=== PATIENT | female | born 1995 | race Caucasian/White ===

== ENCOUNTER 2017-01-14 14:32 | Emergency (ER) | payer MEDICAID ==
[~2017-01-14] VITALS: Ht 165.1 cm; Wt 55.0 kg
[~2017-01-14 14:32] MED LIST: GABA300C10 PO; IBUP-1222 PO; OXYC-302 PO
[2017-01-14] MEDS ORDERED: SODIUM CHLORIDE 0.9% 1,000 ML IV ONE (14:35)
[2017-01-14] MEDS ORDERED: MORPHINE SULFATE 4 MG/ML, 1ML ONE (14:45)
[2017-01-14] MEDS ORDERED: DIPHENHYDRAMINE 50 MG/ML, 1ML ONE (14:45)
[2017-01-14] MEDS ORDERED: METOCLOPRAMIDE 5 MG/ML, 2ML ONE (14:45)
[2017-01-14 14:55] LABS: HEMOGLOBIN 13.5 g/dL (11.7-16.4)
[2017-01-14] MEDS ORDERED: DIPHENHYDRAMINE 50 MG/ML, 1ML IVPush ONE (15:00)
[2017-01-14] MEDS ORDERED: METOCLOPRAMIDE 5 MG/ML, 2ML IVPush ONE (15:00)
[2017-01-14] MEDS ORDERED: MORPHINE SULFATE 4 MG/ML, 1ML IVPush PRN (15:00)
[2017-01-14] MEDS ORDERED: SODIUM CHLORIDE 0.9% 1,000ML IVBOLUS ONE (15:00)
[2017-01-14 15:06] LABS: ASPARTATE AMINO TRANSFERASE 14 U/L (15-37); BLOOD UREA NITROGEN 7 mg/dL (7-18)
[2017-01-14] MEDS ORDERED: DICYCLOMINE 20 MG TABLET PO ONE (16:30)
[2017-01-14 16:56] VITALS: BP 104/72
== END 2017-01-14 17:06 | disposition home or self-care (01) ==
LOC: ED 15:05
DX: R10.84 Generalized abdominal pain (principal); F12.10 Cannabis abuse, uncomplicated
CPT/HCPCS: 36415; 74022; 80053; 81001; 83690; 84703; 85025; 96361; 96374; 96375; 99285; J1200; J2765; J7030

== ENCOUNTER 2017-02-28 06:18 | Emergency (ER) | payer MEDICAID ==
[~2017-02-28] VITALS: Ht 165.1 cm; Wt 54.6 kg
[2017-02-28] MEDS ORDERED: SODIUM CHLORIDE 0.9% 1,000 ML IV ONE (06:35)
[2017-02-28] MEDS ORDERED: FAMOTIDINE 20 MG/2 ML ONE (06:54)
[2017-02-28] MEDS ORDERED: ONDANSETRON 2MG/ML, 2ML ONE (06:54)
[2017-02-28] MEDS ORDERED: ONDANSETRON 2MG/ML, 2ML IVPush ONE (07:00)
[2017-02-28] MEDS ORDERED: SODIUM CHLORIDE 0.9% 1,000ML IVBOLUS ONE (07:00)
[2017-02-28] MEDS ORDERED: FAMOTIDINE 20 MG/2 ML IVP ONE (07:00)
[2017-02-28 07:20] LABS: ASPARTATE AMINO TRANSFERASE 21 U/L (15-37); BLOOD UREA NITROGEN 6 mg/dL (7-18)
[2017-02-28] MEDS ORDERED: POTASSIUM CHLORIDE 20 MEQ TAB.ER.PRT PO ONE (07:30)
[2017-02-28] MEDS ORDERED: MAALOX/HYOSCYAMINE/LIDOCAINE 45 ML BOTTLE ONE (07:57)
[2017-02-28] MEDS ORDERED: POTASSIUM CHLORIDE 20 MEQ TAB.ER.PRT ONE (07:57)
[2017-02-28] MEDS ORDERED: MAALOX/HYOSCYAMINE/LIDOCAINE 45 ML BOTTLE PO ONE (08:00)
[2017-02-28 08:31] VITALS: BP 125/72
== END 2017-02-28 08:40 | disposition home or self-care (01) ==
LOC: ED 07:17
DX: N30.00 Acute cystitis without hematuria (principal); M67.432 Ganglion, left wrist
CPT/HCPCS: 36415; 73110; 80053; 81001; 83690; 84703; 85025; 87086; 96361; 96374; 96375; 99285; J2405; J7030; S0028

== ENCOUNTER 2017-12-27 10:45 | Emergency (ER) | payer MEDICAID ==
[~2017-12-27] VITALS: Ht 165.1 cm; Wt 59.6 kg
[2017-12-27 11:00] VITALS: BP 126/87
[2017-12-27] MEDS ORDERED: IBUPROFEN 200 MG TABLET ONE (11:49)
[2017-12-27] MEDS ORDERED: IBUPROFEN 200 MG TABLET PO ONE (12:00)
== END 2017-12-27 12:19 | disposition home or self-care (01) ==
LOC: ED 12:05
DX: S60.211A Contusion of right wrist, initial encounter (principal); G89.11 Acute pain due to trauma; F17.200 Nicotine dependence, unspecified, uncomplicated; Z88.0 Allergy status to penicillin; Z88.1 Allergy status to other antibiotic agents; W19.XXXA Unspecified fall, initial encounter; Y93.89 Activity, other specified; Y92.410 Unspecified street and highway as the place of occurrence of the external cause; Y99.8 Other external cause status
CPT/HCPCS: 29125; 99284

== ENCOUNTER 2021-03-23 03:56 | Emergency (ER) | payer MEDICAID ==
[~2021-03-23] VITALS: Ht 165.1 cm; Wt 74.4 kg
[~2021-03-23 03:56] MED LIST changes: -OXYC-302 PO; +OXYC1TAB14 PO
--- NOTE | 2021-03-23 04:16 | NUR ---
CRIS ZELAYA CALLED @[phone] CRIS ZELAYA CANCELLED @[phone]
--- NOTE | 2021-03-23 04:17 | NUR ---
PT. CURRENTLY TEXTING ON CELL PHONE.
[2021-03-23 04:20] LABS: BASOPHILS % (AUTO) 1 % (0-1); EOSINOPHILS % (AUTO) 1 % (1-7); LYMPHOCYTES % (AUTO) 43 % (22-44); MEAN CORPUSCULAR HEMOGLOBIN 30.3 pg (27.0-34.8); MEAN CORPUSCULAR HGB CONC 33.3 g/dL (32.4-35.8); MEAN PLATELET VOLUME 8.2 fL (7.4-10.4); MONOCYTES % (AUTO) 8 % (2-9); NEUTROPHILS % (AUTO) 48 % (42-75); PLATELET COUNT 305 x10^3/uL (130-400)
[2021-03-23 04:21] LABS: MD NO
[2021-03-23] MEDS ORDERED: SODIUM CHLORIDE 0.9% 1,000ML IVBOLUS ONE (04:30)
[2021-03-23] MEDS ORDERED: ONDANSETRON 2MG/ML, 2ML IVPush ONE ×2 (04:30→05:30)
[2021-03-23] MEDS ORDERED: NALOXONE 1 MG/ML, 2ML IVPush ONE (04:30)
[2021-03-23] MEDS ORDERED: PLEASE ENTER ALLERGIES MC SCH (04:30)
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
[2021-03-23 04:33] LABS: ALBUMIN 4.1 g/dL (3.4-5.0); ANION GAP 11 mmol/L (5-15); CALCIUM 8.6 mg/dL (8.5-10.1); CHLORIDE 107 mmol/L (98-107)
[2021-03-23 04:38] LABS: ALANINE AMINOTRANSFERASE 34 U/L (12-78); ALKALINE PHOSPHATASE 111 U/L (45-117); BILIRUBIN,TOTAL 0.3 mg/dL (0.2-1.0); CREATININE 1.01 mg/dL (0.55-1.02); SALICYLATE LEVEL 2.5 mg/dL (2.8-20.0); TOTAL PROTEIN 8.7 g/dL (6.4-8.2)
--- NOTE | 2021-03-23 04:48 | NUR ---
PT. HAS FRIEND AT BS AT THIS TIME. PT. EASILY ROUSED AND ORIENTED X 4. VS STABLE.
--- NOTE | 2021-03-23 05:22 | NUR ---
PT. STATES THAT SHE NEEDS TO GO HOME TO TAKE CARE OF HER DOG. O2 REMOVED FOR RA TRIAL. SISTER TO BS AT THIS TIME. PT. C/O NAUSEA; NEW ORDER FOR 4MG ZOFRAN IVP RECEIVED FROM DR. DE LOS SANTOS. PT. STATES "I WILL SIGN OUT AMA IF YOU DON'T WANT ME TO LEAVE." PT. WILLING TO STAY FOR RA TRIAL.
[2021-03-23] MEDS ORDERED: ONDANSETRON 2MG/ML, 2ML ONE (05:24)
--- NOTE | 2021-03-23 05:26 | NUR ---
LATE ENTRY: PT. MEDICATED WITH 4MG ZOFRAN IVP PER VERBAL ORDER FROM DR. DE LOS SANTOS.
--- NOTE | 2021-03-23 05:35 | NUR ---
PT. 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 PT. SISTER STATES "I AM AN ONCOLOGY NURSE AND I WILL BE BY HER SIDE ALL DAY TO TAKE CARE OF HER." PT. AND SISTER SIGNED AMA FORM. PT. AMBULATED OUT OF ED WITH STEADY GAIT.
[2021-03-23 05:36] VITALS: BP 136/95
== END 2021-03-23 05:49 | disposition left against medical advice (07) ==
LOC: EDBD 03:56 → MERGE 04:30 → ED 04:30
DX: T40.2X1A Poisoning by other opioids, accidental (unintentional), initial encounter (principal); G92 Toxic encephalopathy; J96.01 Acute respiratory failure with hypoxia; R00.0 Tachycardia, unspecified; F17.210 Nicotine dependence, cigarettes, uncomplicated; X58.XXXA Exposure to other specified factors, initial encounter; Y93.89 Activity, other specified; Y92.89 Other specified places as the place of occurrence of the external cause; Y99.8 Other external cause status
CPT/HCPCS: 36415; 71045; 80053; 80299; 80320; 80329; 84703; 85025; 92950; 93005; 96361; 96374; 96375; 99291; J2310; J2405; J7030; G0480